=== PATIENT | female | born 1985 | race American Indian/Alaskan Native ===

== ENCOUNTER 2019-01-30 23:18 | Emergency (ER) | payer SELFPAY ==
[2019-01-30 23:35] VITALS: BP 124/81
== END 2019-01-31 00:35 | disposition left against medical advice (07) ==
LOC: ED 23:18
DX: K08.89 Other specified disorders of teeth and supporting structures (principal); Z53.21 Procedure and treatment not carried out due to patient leaving prior to being seen by health care provider